=== PATIENT | female | born 1995 | race Caucasian/White ===

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

== ENCOUNTER 2017-02-28 13:54 | Emergency (ER) | payer MEDICAID ==
[~2017-02-28] VITALS: Ht 157.5 cm; Wt 75.0 kg
[~2017-02-28 13:54] MED LIST changes: +DICL50TA3 PO; +DOXY100C PO
[2017-02-28 14:11] VITALS: BP 136/71; PULSE 76; RESP 18; TEMP 98.6; O2SAT 98
[2017-02-28] MEDS ORDERED: MUPI2OIN TOPICAL (14:31)
[2017-02-28] MEDS ORDERED: CLOTR1%T TOPICAL (14:34)
--- NOTE | 2017-02-28 14:34 | PD ---
HPI Chief Complaint: Skin Problem Time Seen by Provider: 14:31 Travel History International Travel<30 days: No Contact w/Intl Traveler<30days: No Traveled to known affect area: No History of Present Illness HPI 21 year-old female presents to the emergency room for evaluation of 2 skin lesions on her right lower extremity. She states the lesion on her right posterior thigh has been present for the past year and lesion on her right lateral ankle started yesterday. States for the thigh lesion she has been seen multiple times and been prescribed multiple things including clindamycin, Bactrim, mupirocin, Naprosyn, and ibuprofen. It has never needed to be lanced. She has been to several emergency rooms and her primary care physician but never a chisel trimmer. She states in the emergency room it was swabbed and grew out staph. While taking the oral antibiotics her symptoms improve but once she stops the lesion returns which prompts her to be seen again for it. She was last on antibiotics on week ago. Patient denies any itching to the location. She is not on any daily medications. Denies fever, chills, nausea, and vomiting. PFSH Past Medical History Medical History: Denies Significant Hx Developmental Delay: No Diminished Hearing: No Immunizations Current: Yes Tetanus Vaccination: < 5 Years Influenza Vaccination: No ?: Not Past Surgical History Surgical History: No Previous Surgery Social History Alcohol Use: No Tobacco Use: No Substance Use: No Allergies-Medications (Allergen,Severity, Reaction): Coded Allergies: No Known Allergies (Verified , 02/28/17) Reported Meds & Prescriptions Reported Meds & Active Scripts Active Clotrimazole Topical (Clotrimazole) 1% Soln 1 Applic TOPICAL BID Mupirocin Topical (Mupirocin) 2 % Oint 1 Applic TOPICAL BID Review of Systems Except as stated in HPI: all other systems reviewed are Neg Physical Exam Narrative GENERAL: Well-nourished, well-developed female in no acute distress. Afebrile. Ambulatory. SKIN: Focused skin assessment warm/dry. There is a 0.5 cm area of erythema with a closed scab on the right lateral ankle. No lymphangitis, induration, fluctuance, or drainage. There is a 3 cm in diameter area of erythema with central scaling on the posterior right thigh without lymphangitis, drainage, induration, or fluctuance. Mildly tender to palpation. HEAD: Normocephalic. EYES: No scleral icterus. No injection or drainage. NECK: Supple, trachea midline. No JVD or lymphadenopathy. CARDIOVASCULAR: Regular rate and rhythm without murmurs, gallops, or rubs. RESPIRATORY: Breath sounds equal bilaterally. No accessory muscle use. PSYCHIATRIC: No delusional thought processes. No hallucinations. Data Data Last Documented VS Vital Signs Date Time Temp Pulse Resp B/P Pulse Ox O2 Delivery O2 Flow Rate FiO2 02/28/17 14:11 98.6 76 18 136/71 98 MDM Medical Decision Making Medical Screen Exam Complete: Yes Emergency Medical Condition: Yes Medical Record Reviewed: Yes Differential Diagnosis MRSA, abscess, cellulitis, tinea corporis Narrative Course 21-year-old female presents to the emergency room for evaluation of 2 skin lesions on her right lower extremity. Thigh lesion has been present for one year, ankle lesion has been present for one day. Physical exam reveals what appears to be an excoriated bug bite to the right lateral ankle with no evidence of infection. The chronic posterior thigh lesion could represent tinea corporis that has been secondarily infected. No signs of abscess or cellulitis. No indications for oral antibiotics especially given the patient was on them 1 week ago. No systemic signs of infection. She was discharged with prescription for mupirocin and told to follow up with primary care physician for referral to chisel trimmer. The symptoms. She understands and agrees to plan. Diagnosis Primary Impression: Staph skin infection Referrals: [facility] Patient Instructions: General Instructions, Wound Infection (ED) Additional Instructions: Rest and drink plenty of fluids. Apply mupirocin as directed, for 7 days. Apply clotrimazole as directed for 2 weeks. Take ibuprofen with food as directed, as needed for pain. Follow-up with a chisel trimmer. Return to the emergency room for worsening symptoms. Med/Other Pt SpecificInfo: Prescription(s) given Scripts Clotrimazole Topical 1% Soln1 Applic TOPICAL BID #10 ML Ref 0 Prov:Pranay Saxena MD 02/28/17 Mupirocin Topical 2 % Oint1 Applic TOPICAL BID #22 GM Ref 0 Prov:Pranay Saxena MD 02/28/17 Disposition: 01 DISCHARGE HOME Condition: Stable Isa Romeo Feb 28, 2017 14:34
== END 2017-02-28 14:40 | disposition home or self-care (01) ==
LOC: PHEFT 13:54
DX: L08.9 Local infection of the skin and subcutaneous tissue, unspecified (principal); B95.8 Unspecified staphylococcus as the cause of diseases classified elsewhere
CPT/HCPCS: 99283